=== PATIENT | female | born 1985 | race Caucasian/White ===

== ENCOUNTER 2019-06-02 15:03 | Emergency (ER) | payer OTHER ==
[~2019-06-02] VITALS: Ht 165.1 cm; Wt 102.1 kg
[2019-06-02 15:43] VITALS: BP 129/75
--- NOTE | 2019-06-02 16:00 | NUR ---
Patient discharged to home in stable condition. Written and verbal after care instructions given. Patient verbalizes understanding of instruction.
== END 2019-06-02 16:02 | disposition home or self-care (01) ==
LOC: ER 15:06
DX: M54.2 Cervicalgia (principal); M54.5 Low back pain; V49.49XA Driver injured in collision with other motor vehicles in traffic accident, initial encounter; Y93.89 Activity, other specified; Y92.413 State road as the place of occurrence of the external cause; Y99.8 Other external cause status